=== PATIENT | male | born 1945 | race African-American/Black ===

== ENCOUNTER 2016-10-20 12:34 | Inpatient (IN) | payer OTHER ==
[~2016-10-20] VITALS: Ht 185.4 cm; Wt 97.2 kg
--- NOTE | ~2016-10-20 | CATHLAB ---
[facility] [address] [place] [address] INVASIVE PROCEDURE REPORT Name: JOSS MURRAY Room #: 210-P ADM IN M.R.#: [id number] Admission: 10/20/16 Attend Phys: Jefry Becerra, Discharge: Date of : 41 Date of Service: 10/21/16 0941 Report #: [id number] THIS REPORT FOR: //name// CC: Tremaine Pearl DO Jefry Becerra PROCEDURES: Left ventriculography, coronary angiography, and abdominal aortography. DESCRIPTION OF PROCEDURE: The patient was brought to the catheterization lab with recurrent chest pain, abdominal pain, and a troponin of 1.02. Pain free. The right groin was prepped and draped in sterile manner. Xylocaine was used for local anesthesia. Versed was given for conscious sedation. A 6-Niuean sheath in the right femoral artery. Initially, straight pigtail catheter was performed a single BLANK arteriogram. Hyperdynamic LV function, AP aortogram, no aneurysm. FL4 for left coronary system, FR4 for the right coronary system, multiple views and obliques were taken. Left main was large, free of disease. The LAD then had a mild disease proximally and then a midvessel after diagonal has a subtotaled lesion with some questionable clot. Although, MURIEL grade 3 flow through. Then, the diagonal branch approximately has a 70-80% lesion. Circ OM nondominant, but large, has at least 70% proximal OM1 and OM2 lesions. Dominant right has a high grade ostial lesion with the JR4 and a long mid vessel lesion, mid distal 80-90% with a PDA that is mildly diseased. Multiple significant areas of disease here, would require revascularization by bypass. Did give consideration to angioplasty of the LAD, but there is MURIEL grade 3 flow through this clot and he is pain free. I did utilize heparin and Integrilin boluses initially dilating this LAD. He has gotten no Plavix or Effient. Mynx closure was utilized for an ACT of 190. We will then restart a heparin drip without a blouse. Carotid Doppler and CV surgical consultation. Pain free at this point without hemodynamic compromise. HEMODYNAMICS: Aortic 154/70, LV 140/7. IMPRESSION: 1. Left main, free of disease. 2. Left anterior descending, 30% proximal mid vessel lesions, subtotal with questionable clot, but MURIEL grade 3 flow, otherwise then preserved around the apex. 3. Diagonal branch 70% proximal. 4. OM1, OM2 with 70-75% proximal lesions with relatively preserved distal vessels. 5. Dominant right ostial 80-90% and a long mid vessel 80-90% with a mildly diseased PDA. 6. Normal left ventricular size and hyperdynamic ejection fraction 60%. 7. Abdominal aorta intact, no aneurysm. Renal artery is widely patent. [facility] [address] [place] [address] INVASIVE PROCEDURE REPORT Name: JOSS MURRAY Room #: 210-P [facility] IN Bj.RStephanie#: [id number] Admission: 10/20/16 Attend Phys: Jefry Becerra, Discharge: Date of : 41 Date of Service: 10/21/16 0941 Report #: [id number] RECOMMENDATIONS: Continue aggressive risk factor modification. After Mynx closure, we will place on heparin drip, CV surgical consultation, carotid Doppler, revascularization by bypass. We will add beta khari. Pain free, hemodynamically stable on transfer back to CCU. <ELECTRONICALLY SIGNED> By: Jefry Becerra MD, FACC 10/29/16 0921 0941 2239 Jefry Becerra MD, FACC /nt
--- NOTE | ~2016-10-20 | O ---
[facility] [place] [address] OPERATIVE REPORT Name: JOSS MURRAY Room #: 213-P [facility] IN M.R.#: [id number] Admission: 10/20/16 Attend Phys: Jefry Becrera MD, Discharge: Date of : 41 Report #: [id number] THIS REPORT FOR: //name// CC: Tremaine Becerra DATE OF SERVICE: 10/22/2016 PREOPERATIVE DIAGNOSIS: Coronary artery disease. POSTOPERATIVE DIAGNOSIS: Coronary artery disease. OPERATIONS: Coronary artery bypass x 5 including left internal mammary artery to left anterior descending artery; saphenous vein to diagonal, marginal 1, and marginal 2; and saphenous vein to posterior descending artery and endoscopic harvest, left greater saphenous vein. SURGEON: Jama Lopes MD ANESTHESIA: General. INDICATIONS: The patient is a 71-year-old seen for Dr. Becerra. The patient has severe 3-vessel coronary artery disease and presents with unstable angina. Left ventricular function is satisfactory. FINDINGS AND TECHNIQUE: After general anesthesia was established, saphenous vein was harvested using an endoscopic approach by Mounika Werner and prepared for use as a conduit. Exposure was obtained through median sternotomy. Left internal mammary artery was harvested from chest wall. Pericardial well was made. Cannulation sutures were placed. Heparin was given. Aorta was cannulated. Right atrium was cannulated. Cardioplegia needle was positioned in the aortic root. Retrograde cardioplegic catheter was placed in coronary sinus. Cardiopulmonary bypass was established. The aorta was cross clamped antegrade, then retrograde. Cardioplegia were given. Ice was poured in the pericardial well. The heart was stopped. During electromechanical arrest, the distal anastomoses were performed, then end-to-side anastomosis was made between the vein and the posterior descending artery. This was a tiny vessel measuring approximately 1.2 mm. Cold cardioplegia was given. A separate segment of vein was sewn end-to-side fashion to the second marginal artery. All of the coronary arteries were diffusely calcified, but we chose reasonable spots for distal anastomoses. The second marginal measured 1.5 mm. Cold cardioplegia was given. Same segment of vein was sewn in end-to-side fashion to the second branch of the first marginal. [facility] [address] [place] [address] OPERATIVE REPORT Name: JOSS MURRAY Room #: 213-P [facility] IN M.R.#: [id number] Admission: 10/20/16 Attend Phys: Jefry Becerra MD, Discharge: Date of : 41 Report #: [id number] This was a 1.5 mm vessel. Cold cardioplegia was given. Same segment of vein was sewn in [id number] fashion to the diagonal artery. This was a 1.4 mm vessel. Cold cardioplegia was given. Left internal mammary artery was sewn in end-to-side fashion to left anterior descending artery. This was an intramyocardial vessel where it bypassed and was free of plaque in this location, but had severe calcific disease more proximally and somewhat more distally. This was a 1.7 mm vessel. Cold cardioplegia was given after the anastomosis was tested using the temperature technique. One proximal anastomosis was performed because there was severe plaque in the aorta. The proximal end of the vein graft to the right coronary was sewn to the right side of the aorta to avoid the worst plaque. When this was complete, crossclamp was removed, de-airing maneuvers were performed and an end-to-side anastomosis was made between the proximal end of the graft going to the diagonal and marginals, and this was sewn to the side of the graft going to the posterior descending. As the patient warmed, nice cardiac activity resumed, chest tubes and pacing wires were placed, a marker was placed around the proximal anastomoses. When the patient was warmed, he was weaned from cardiopulmonary bypass. Venous cannula was removed. Protamine was given, the aortic cannula was removed. Flows were measured in the bypass grafts, and this was a Y-type graft. In the limb going to the small PDA, there was a flow of 8 mL per minute. In the limb going to the left side, the flow was 35 mL per minute. A good Doppler signal was audible in the internal mammary artery. Total cross clamp time was 101 minutes. Total pump time was 141 minutes. When hemostasis was satisfactory, chest was irrigated with antibiotic solution and closed in the usual fashion. The patient was taken to the intensive care unit in good condition. All counts reported as correct. <ELECTRONICALLY SIGNED> By: Jama Lopes MD 10/26/16 1117 1806 2128 Jama Lopes MD /nt
--- NOTE | ~2016-10-20 | EKG ---
[address] [address] ELECTROCARDIOGRAM REPORT Name: JOSS MURRAY Room #: 210-P ADM IN M.R.#: [id number] Admission: 10/20/16 Attend Phys: Jefry Becerra MD, Discharge: Date of : 41 Report #: [id number] THIS REPORT FOR: //name// [facility] Test Date: 2016-10-20 Test Time: 17:03:46 Pat Name: JOSS MURRAY Department: Room: 210 Gender: M Pilates Coordinator: RANDY : 1945 Requested By: Jefry Becerra Order Number: [id number] MD: Measurements Intervals [place] Rate: 56 P: 57 MD: 175 QRS: -41 QRSD: 105 T: 20 QT: 398 QTc: 385 Interpretive Statements Sinus rhythm Left atrial enlargement Left anterior fascicular block Abnormal R-wave progression, early transition Minimal ST elevation, anterior leads No previous ECG available for comparison [email or web address] By: 1703 1703 Epiphany EpiphanyMD /EPI
--- NOTE | ~2016-10-20 | 2DMMODE ---
[address] [address] 2 D/M-MODE ECHOCARDIOGRAM Name: JOSS MURRAY Room #: 210-P ADM IN M.R.#: [id number] Admission: 10/20/16 Attend Phys: Jefry Becerra, Discharge: Date of : 41 Date of Service: 10/21/16 1315 Report #: [id number] THIS REPORT FOR: //name// APPROVED REPORT Study performed: 10/21/2016 10:48:18 EXAM: Comprehensive 2D, Doppler, and color-flow Echocardiogram Patient Location: Bedside Room #: 210 Blood Pressure: 130/66 mmHg HR: 70 bpm Other Information Study Quality: Good Indications Diabetes CAD Chest Pain Hypertension/HDD 2D Dimensions LVOT Diam: 18.00 (18-24mm) Volumes Left Atrial Volume (Systole) LA ESV Index: 14.00 mL/m2 Tricuspid Valve RAP Estimate: 5.00 mmHg Left Ventricle The left ventricle is normal size. There is normal LV segmental wall motion. Mild concentric left ventricular hypertrophy. Left ventricular systolic function is normal. The left ventricular ejection fraction is within the normal range. LVEF is 60-65%. Grade I - abnormal relaxation pattern. Right Ventricle The right ventricle is normal size. The right ventricular systolic function is normal. [address] [address] 2 D/M-MODE ECHOCARDIOGRAM Name: JOSS MURRAY Room #: 210-P ADM IN M.R.#: [id number] Admission: 10/20/16 Attend Phys: Jefry Becerra, Discharge: Date of : 41 Date of Service: 10/21/16 1315 Report #: [id number] [place] The left atrium size is normal. The right atrium size is normal. Aortic Valve The aortic valve is trileaflet, mildly calcified Mild aortic regurgitation. There is no aortic valvular stenosis. Mitral Valve The mitral valve is normal in structure. There is no mitral valve regurgitation noted. No evidence of mitral valve stenosis. Tricuspid Valve The tricuspid valve is normal in structure. Trace tricuspid regurgitation. Pulmonic Valve The pulmonary valve is normal in structure. There is no pulmonic valvular regurgitation. Great Vessels The aortic root is normal in size. IVC is normal in size and collapses with >50% inspiration Pericardium There is no pericardial effusion. <Conclusion> Left ventricular systolic function is normal. Mild concentric left ventricular hypertrophy. There is normal LV segmental wall motion. LVEF 60-65%. Grade I diastolic dysfunction The aortic valve is trileaflet, mildly calcified Mild aortic regurgitation, no stenosis. The mitral valve is normal in structure, no mitral valve regurgitation noted. Pulmonary artery pressure could not be reliably ascertained. There is no pericardial effusion. <ELECTRONICALLY SIGNED> By: Jayy Reyes MD, FACC 04/1314 14 14 Jayy Reyes MD, FAC /INF
--- NOTE | ~2016-10-20 | D ---
[facility] [address] [place] [address] DISCHARGE SUMMARY Name: JOSS MURRAY Room #: 210-P [facility] IN M.R.#: [id number] Admission: 10/20/16 Attend Phys: Jefry Becerra MD, Discharge: Date of : 41 Report #: [id number] THIS REPORT FOR: //name// CC: Tremaine Pearl [facility] COURSE: The patient is a 71-year-old male who was admitted with a strange presentation of epigastric and chest pain. Subsequently, he had a slight bump in the troponin and was taken to the catheterization lab, which revealed severe 3-vessel disease. Subsequently, underwent bypass surgery by Dr. Jama Lopes. The patient had preserved LV function, and in fact, slightly hypodynamic. He proceeded nicely. He had a fairly stable postop course. He did have a small pneumothorax, which has nearly resolved. He had a slight ileus which also has resolved. He will be discharged to home. They are actually in the transition moving from [place], [place] here to [place]. We will arrange followup with Dr. Norwood and me within 2 weeks. He may return to [place] for some period of time. His chemistry: Sodium 135, creatinine 1.0 and potassium 3.5. Liver function tests were normal. He did have mildly elevated lipids. LDL was 102. H and H were 10.7 and 31.3 at discharge. His bypass was 5 vessels a STEWART to an LAD, SVG to the diagonal and OM1, OM2, so it was a triple sequential an SVG to a PDA. MEDICATIONS: His home medications will include baby aspirin, amiodarone 200 b.i.d. to wean to once a day for 2 weeks and then off within a month, atorvastatin 40, insulin, melatonin, Pepcid he can take p.r.n., metoprolol tartrate 25 b.i.d., hydrochlorothiazide 25 and metformin 500 b.i.d. DISCHARGE INSTRUCTIONS: His instructions are noted above. No significant lifting with the upper body as per surgery instructions. He has followup with Dr. Norwood in 2 weeks and myself in 2 weeks and then we will arrange some formal cardiac rehabilitation. He is supposed to ambulate, walk 10 minutes twice a day. He will call with any issues. DISCHARGE DIAGNOSES: 1. Coronary artery disease with successful bypass 5-vessel stated above. 2. Hypertension. 3. Hypercholesterolemia. 4. Diabetes. 5. Postoperative Ileus and small apical pneumothorax, both resolved. By: 0834 1324 Jefry Becerra MD, FACC /nt
--- NOTE | ~2016-10-20 | EKG ---
[address] [address] ELECTROCARDIOGRAM REPORT Name: JOSS MURRAY Room #: 210-P ADM IN M.R.#: [id number] Admission: 10/20/16 Attend Phys: Jefry Becerra MD, Discharge: Date of : 41 Report #: [id number] THIS REPORT FOR: //name// [facility] Test Date: 2016-10-21 Test Time: 06:45:21 Pat Name: JOSS MURRAY Department: Room: 210 P Gender: M Paper Machine Back Tender: willy : 1945 Requested By: Jefry Becerra Order Number: [id number] MD: Jayy Reyes Measurements Intervals [place] Rate: 58 P: 46 [place]: 165 QRS: -52 QRSD: 101 T: 26 QT: 417 QTc: 410 Interpretive Statements Sinus rhythm Probable left atrial enlargement Left anterior fascicular block No previous ECG available for comparison Electronically Signed On 10-21-2016 9:28:37 CDT by Jayy Reyes [email or web address] <ELECTRONICALLY SIGNED> By: Jayy Reyes MD, [facility] 10/21/16 0928 D: [id number] 4 Jayy Reyes MD, FACC /EPI
--- NOTE | ~2016-10-20 | EKG ---
[address] [place] [address] ELECTROCARDIOGRAM REPORT Name: JOSS MURRAY Room #: 210-P ADM IN M.R.#: [id number] Admission: 10/20/16 Attend Phys: Jefry Becerra MD, Discharge: Date of : 41 Report #: [id number] THIS REPORT FOR: //name// [facility] ED Test Date: 2016-10-20 Test Time: 12:37:49 Pat Name: JOSS MURRAY Department: Room: 210 Gender: M Dental Coordinator: Corwin MERCADO : 1945 Requested By: Willy Perkins Order Number: [id number] MD: Jayy Reyes Measurements Intervals [place] Rate: 57 P: 39 [place]: 162 QRS: -42 QRSD: 101 T: 11 QT: 401 QTc: 391 Interpretive Statements Sinus rhythm Left anterior fascicular block Abnormal R-wave progression, early transition No previous ECG available for comparison Electronically Signed On 10-21-2016 9:21:13 CDT by Jayy Reyes [email or web address] <ELECTRONICALLY SIGNED> By: Jayy Reyes MD, [facility] 10/21/16 0921 1237 1237 Jayy Reyes MD, FAC /EPI
--- NOTE | ~2016-10-20 | HC ---
[facility] [place] [address] CONSULTATION Name: JOSS MURRAY Room #: 210-P [facility] IN M.R.#: [id number] Admission: 10/20/16 Attend Phys: Jefry Becerra MD, Discharge: Date of : 41 Report #: [id number] THIS REPORT FOR: //name// CC: Tremaine Becerra DATE OF SERVICE: 10/21/2016 We were asked by Dr. Becerra to see the patient. The patient is a 71-year-old with coronary artery disease. The patient apparently moved here recently from [place], [place]. The patient has been having recurrent epigastric discomfort and in [place], he was diagnosed with H. pylori. The patient developed more pain over the weekend and had a severe episode of unrelenting midsternal pain while on the treadmill. This was initially left side, substernal and then the breastbone radiating to the epigastrium, lasted for approximately an hour and this brought the patient to the Emergency Department. The patient had some nonspecific EKG changes and was associated with an elevated troponin. We note that cardiac catheterization was done today. This shows severe 3-vessel coronary artery disease including high grade mid LAD and right coronary lesions. Left ventricular function is satisfactory. There are also lesions in the circumflex, marginals and in a nicely sized diagonal as well. PAST MEDICAL HISTORY: Significant for hypertension, diabetes mellitus, hypercholesterolemia, H. pylori treated in August. PAST SURGICAL HISTORY: Left shoulder surgery 2013, left knee surgery. SOCIAL HISTORY: . 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 Has not smoked in 50 years. FAMILY HISTORY: Positive for coronary artery disease. One sister had a sudden and brother has had several infarcts. REVIEW OF SYSTEMS: CONSTITUTIONAL: Weight loss over the last year, related to decreased appetite. No fever or chills. RESPIRATORY: No shortness of breath, no sputum production, no hemoptysis. CARDIAC: As mentioned, the patient has had epigastric pain that he has attributed to GI system until the most recent episode, which was exercise related, no palpitations. GASTROINTESTINAL: As mentioned, epigastric discomfort associated with food intake. No nausea, vomiting, diarrhea, just loss of appetite. GENITOURINARY: No urgency, frequency, dysuria. MUSCULOSKELETAL: Scattered arthritides which led to joint replacement surgery, left shoulder and left knee surgery. [facility] [address] [place] [address] CONSULTATION Name: JOSS UMRRAY Room #: 210-P [facility] IN M.R.#: [id number] Admission: 10/20/16 Attend Phys: Jefry Becerra MD, Discharge: Date of : 41 Report #: [id number] NEUROLOGIC: No motor or sensory dysfunction. PSYCHIATRIC: No hallucination or depression. SKIN: No rash or infection. HEMATOLOGIC AND LYMPHATIC: No anemia, no swelling. HEENT: No visual changes. No headaches. No nasal drainage. No sore throat, no ear problems, is hard of hearing. PHYSICAL EXAMINATION: GENERAL: The patient is a pleasant fellow. He is oriented and appropriate. VITAL SIGNS: Temperature 36.8, heart rate 70, respiratory rate 16, blood pressure 130/66, pulse ox 91 on room air. HEENT: No scleral icterus, no arcus. Pupils equal, round, gaze conjugate. Normocephalic. No oral or nasal injection. NECK: No lymphadenopathy, no bruit. LUNGS: Clear to auscultation. No adventitious sounds. HEART: Rhythm regular, no murmurs. ABDOMEN: Soft, no mass, no tenderness. SKIN: No rash or infection. EXTREMITIES: No clubbing, cyanosis or edema. I do not feel strong distal pulses, but popliteal pulses are 2+ bilaterally. NEUROLOGIC: Oriented and appropriate. No motor or sensory dysfunction. PSYCHIATRIC: Mood is neither artificially elevated or depressed. The patient is very calm, demeanor and he shows insight into problems. I have reviewed the risks and details of coronary artery bypass surgery. This is appropriate for 2 reasons in this patient. The fact that the patient has multivessel disease and has diabetes mellitus and the nature and number and location of the lesions themselves. I have discussed the risks and details of bypass surgery, the options and alternatives, risks include, but are not limited to bleeding, infection, anesthesia risks, heart and lung problems, stroke, and . The patient understands all of this and he wishes to proceed. We will try to arrange surgery for tomorrow. <ELECTRONICALLY SIGNED> By: Jama Lopes MD 10/21/16 1413 1130 1154 Jaam Lopes MD /nt
--- NOTE | ~2016-10-20 | EKG ---
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 Machine Operator: CHINEDU : 1945 Requested By: Willy Perkins Order Number: [id number] MD: Jayy Reyes Measurements Intervals [place] Rate: 50 P: 40 [place]: 165 QRS: -41 QRSD: 100 T: 10 QT: 417 QTc: 381 Interpretive Statements Sinus rhythm Left anterior fascicular block Abnormal R-wave progression, early transition No previous ECG available for comparison Electronically Signed On 10-21-2016 9:21:45 CDT by Jayy Reyes [email or web address] <ELECTRONICALLY SIGNED> By: Jayy Reyes MD, [facility] 10/21/16 0921 16 16 Jayy Reyes MD, FAC /EPI
--- NOTE | ~2016-10-20 | EKG ---
[address] [place] [address] ELECTROCARDIOGRAM REPORT Name: JOSS MURRAY Room #: 210-P ADM IN M.R.#: [id number] Admission: 10/20/16 Attend Phys: Jefry Becerra MD, Discharge: Date of : 41 Report #: [id number] THIS REPORT FOR: //name// [facility] Test Date: 2016-10-26 Test Time: 07:25:45 Pat Name: JOSS MURRAY Department: Room: 210 Gender: M Chip Drier: jessica : 1945 Requested By: Jama Lopes Order Number: [id number] MD: Jayy Reyes Measurements Intervals [place] Rate: 82 P: 0 [place]: 135 QRS: -74 QRSD: 147 T: 17 QT: 426 QTc: 498 Interpretive Statements Sinus rhythm Right bundle branch block Left anterior hemiblock Minimal, diffuse ST elevation, consider pericarditis Compared to ECG 10/23/2016 06:37:17 no significant change was found Electronically Signed On 10-27-2016 12:46:10 CDT by Jayy Reyes [email or web address] <ELECTRONICALLY SIGNED> By: Jayy Reyes MD, [facility] 10/27/16 1246 0725 0725 Jayy Reyes MD, [facility] /EPI
--- NOTE | ~2016-10-20 | EKG ---
[address] [place] [address] ELECTROCARDIOGRAM REPORT Name: JOSS MURRAY Room #: 210-P ADM IN M.R.#: [id number] Admission: 10/20/16 Attend Phys: Jefry Becerra MD, Discharge: Date of : 41 Report #: [id number] THIS REPORT FOR: //name// [facility] Test Date: 2016-10-20 Test Time: 17:03:46 Pat Name: JOSS MURRAY Department: Room: 210 P Gender: M Loan Broker: RANDY : 1945 Requested By: Jefry Becerra Order Number: [id number] MD: Jayy Reyes Measurements Intervals [place] Rate: 56 P: 57 [place]: 175 QRS: -41 QRSD: 105 T: 20 QT: 398 QTc: 385 Interpretive Statements Sinus rhythm Left atrial enlargement Left anterior fascicular block Abnormal R-wave progression, early transition No previous ECG available for comparison Electronically Signed On 10-21-2016 9:23:22 CDT by Jayy Reyes [email or web address] <ELECTRONICALLY SIGNED> By: Jayy Reyes MD, [facility] 10/21/16 0923 02 02 Jayy Reyes MD, [facility] /EPI
--- NOTE | ~2016-10-20 | EKG ---
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 : 1945 Requested By: Jama Lopes Order Number: [id number] MD: Jayy Reyes Measurements Intervals [place] Rate: 77 P: 6 CO: 136 QRS: -65 QRSD: 138 T: 14 QT: 406 QTc: 460 Interpretive Statements Sinus rhythm Right bundle branch block Inferior infarct, old Minimal diffuse ST elevation, consider pericarditis Baseline wander in lead(s) V5,V6 Compared to ECG 10/21/2016 06:45:21 repolarization abnormality is slightly more prominent Electronically Signed On 10-24-2016 8:10:25 CDT by Jayy Reyes [email or web address] <ELECTRONICALLY SIGNED> By: Jayy Reyes MD, [facility] 10/24/16 0810 0637 0637 Jayy Reyes MD, [facility] /EPI
--- NOTE | ~2016-10-20 | H ---
[facility] [place] [address] HISTORY AND PHYSICAL Name: JOSS MURRAY Room #: 210-P ADM IN M.R.#: [id number] Admission: 10/20/16 Attend Phys: Jefry Becerra MD, Discharge: Date of : 41 Report #: [id number] THIS REPORT FOR: //name// CC: Tremaine Pearl DO Jefry Becerra DATE OF SERVICE: 10/20/2016 HISTORY OF PRESENT ILLNESS: The patient is a 71-year-old -[place] male. He recently move here from [place], [place] ____ moving here. Saw Dr. Pearl for trying to arrange some primary care for some recurrent chest pain, epigastric discomfort initially left side, substernal, breast bone radiating down to the epigastrium. It seems to be associated with food but had an episode this morning while on the treadmill although this discomfort had initiated before the treadmill after he had a breakfast sausage. This lasted approximately an hour. The EKG has some nonspecific changes on it. Some early repol or some ST abnormalities in the anterior leads and some subtle and inferior T-wave inversions. Three times I repeated this EKG. It looks to be unchanged. He is pain free since he came here. Initial troponin was 0.08, we are repeating one. He does not have cardiac history, but does have significant risk factors, hypertension, diabetes and hypercholesterolemia. He has not recently started Protonix, although I think Dr. Pearl may have started this. He had been off it for 6 months, taking some Tagamet he states, glimepiride 2 mg, Lipitor 40, metformin 500 b.i.d., amlodipine 10, metoprolol 50, Actos, potassium 10, hydrochlorothiazide 25. He has had no syncope or presyncope. He is active. 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 He is accompanied by his brother who lives here and his . PAST MEDICAL HISTORY: Positive for hypertension, diabetes, hypercholesterolemia, H. pylori treated in August for this, knee surgery, left shoulder replacement, carpal tunnel, DJD, reflux, longstanding. REVIEW OF SYSTEMS: Essentially negative except for some increasing constipation issues and has been chewing a lot of Tums lately, which may be playing a role he states. SOCIAL HISTORY: He is . He has raised 6 children together moving here from [place]. Social alcohol, no tobacco use. No drug use. FAMILY HISTORY: Brother and a sister, both have had coronary events in their late 50s or early 60s. PHYSICAL EXAMINATION: GENERAL: He is in no distress. VITAL SIGNS: Pulse is 50s and regular. Blood pressure 140/74. [facility] [address] [place] [address] HISTORY AND PHYSICAL Name: JOSS MURRAY Room #: 210-P [facility] IN M.R.#: [id number] Admission: 10/20/16 Attend Phys: Jefry Becerra MD, Discharge: Date of : 41 Report #: [id number] HEENT: Eyes: No xanthelasmas. Pharynx is clear. NECK: Shows preserved upstrokes without JVD or bruits. LUNGS: Clear. CARDIOVASCULAR: Regular rate and rhythm, S1, S2. Somewhat distant. ABDOMEN: Protuberant, is just diffusely tender but no rebound, slightly worse in the epigastric area, positive bowel sounds. EXTREMITIES: Reveal trace of edema, nonpitting. NEUROLOGIC: Nonfocal. SKIN: Warm and dry without xanthoma or ulcer. MUSCULOSKELETAL: Some valgus deformity of the knees, the left shoulder scar from a shoulder replacement. SKIN: Warm and dry without xanthoma or ulcer. NEUROLOGIC: Intact. LABORATORY DATA: Creatinine 1.2, potassium 4.2, glucose 260, troponin 0.81, awaiting repeat, H and H is 17 and 48. White count 4.6. ASSESSMENT: 1. Chest pain with an equivocal troponin elevation, 0.81. 2. Hypertension. 3. Diabetes. 4. Hypercholesterolemia. 5. Obesity. 6. Significant reflux history. 7. Degenerative joint disease. RECOMMENDATIONS AND PLAN: I have continued with the metoprolol, amlodipine, Lipitor, metformin. We will hold metformin by the chance and we would need to proceed to the catheterization lab, although certainly not emergently here, no EKG changes, hydrochlorothiazide, Protonix. We will obtain an enzyme now in the a.m. EKG repeated now has already completed, no change and in a.m. He actually has been on a treadmill, so if we do not have any further elevation of enzymes, I would opt for a stress echo. Would hold the a.m. metoprolol and proceed with the stress test in the a.m. barring there is no increased troponin. If there is increased troponin, then one would give serious consideration to cardiac catheterization here with multiple risk factors. In addition, may need GI consult or EGD based on this, also abdominal ultrasound would be indicated and potential for a gallbladder issue here. This had been discussed with the patient, he is pain free. If he if comfortable, I will feed him bland diet tonight. We will keep him n.p.o. after midnight and follow. <ELECTRONICALLY SIGNED> By: Jefry Becerra MD, [facility] 10/21/16 0815 1720 1828 Jefry Becerra MD, FACC /nt
--- NOTE | ~2016-10-20 | EKG ---
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 : 1945 Requested By: Jama Lopes Order Number: [id number] MD: Jayy Reyes Measurements Intervals [place] Rate: 85 P: 13 [place]: 190 QRS: -86 QRSD: 137 T: 39 QT: 408 QTc: 486 Interpretive Statements Sinus rhythm RBBB and LAFB Compared to ECG 10/21/2016 06:45:21 Right bundle-branch block now present Electronically Signed On 10-23-2016 8:33:20 CDT by Jayy Reyes [email or web address] <ELECTRONICALLY SIGNED> By: Jayy Reyes MD, [facility] 10/23/16 0833 1604 1604 Jyay Reyes MD, [facility] /EPI
[2016-10-20 12:35] VITALS: BP 173/75
[2016-10-20 13:01] LABS: ABSOLUTE NEUTROPHILS 2.8 thou/uL (1.4-8.2); BASOPHILS 1.6 % (0.0-2.0); HEMATOCRIT 48.8 % (42.0-52.0); LYMPHOCYTES 27.8 % (24.0-44.0); MCH 29.1 pg (26.0-34.0); MCHC 34.9 g/dL (28.0-37.0); MCV 83.3 fL (80.0-100.0); MONOCYTES 9.1 % (1.0-8.0); PLATELET COUNT 232 thou/uL (150-400); POLYS 60.5 % (36.0-66.0); RBC 5.86 mil/uL (4.50-6.00); RDW 13.2 % (10.5-14.5); WBC 4.6 thou/uL (4.0-11.0)
[2016-10-20 13:02] LABS: MANUAL DIFF NO
[2016-10-20 13:06] LABS: CALCIUM 9.6 mg/dL (8.5-10.1); CREATININE 1.2 mg/dL (0.7-1.3); POTASSIUM 4.2 mmol/L (3.5-5.1)
[2016-10-20 13:13] LABS: ALBUMIN 3.8 g/dL (3.4-5.0); TOTAL BILIRUBIN 0.7 mg/dL (<0.1-1.0); TOTAL PROTEIN 7.9 g/dL (6.4-8.2)
[2016-10-20 13:15] LABS: TROPONIN-I 0.81 ng/mL (<0.04-0.07)
[2016-10-20] MEDS ORDERED: HYDROCHLOROTHIA25 M2 PO (13:21)
[2016-10-20] MEDS ORDERED: PANTOPRAZOLE SO40 M1 PO (13:21)
[2016-10-20] MEDS ORDERED: KLOR-CON M1010 MEQ PO (13:22)
[2016-10-20] MEDS ORDERED: AMARYL2 MG PO (13:22)
[2016-10-20] MEDS ORDERED: ATORVASTATIN CA40 MG PO (13:22)
[2016-10-20] MEDS ORDERED: AMLODIPINE BESY10 MG PO (13:23)
[2016-10-20] MEDS ORDERED: GLUCOPHAGE XR500 MG PO (13:23)
[2016-10-20] MEDS ORDERED: METOPROLOL SUCC50 MG PO (13:23)
[2016-10-20] MEDS ORDERED: ACTOS 30 MG TAB30 M2 PO (13:24)
[2016-10-20] MEDS ORDERED: [UNRECOGNIZED DRUG - OTHER] PO (13:25)
[2016-10-20] MEDS ORDERED: [UNRECOGNIZED DRUG - SUPPLY] PO (13:26)
[2016-10-20 19:37] VITALS: BP 139/71
[2016-10-20 23:35] VITALS: BP 134/67
[2016-10-21] VITALS (11 sets, daily range): BP systolic 116–167; BP diastolic 56–93
[2016-10-21 06:57] LABS: CHOLESTEROL 168 mg/dL (<200); HDL CHOLESTEROL 53 mg/dL (>40); LDL CHOLESTEROL 102 mg/dL (<100); TC:HDL 3.2 Ratio (Not establshd); TRIGLYCERIDE 69 mg/dL (<150); VLDL 14 mg/dL (<40)
[2016-10-21 06:59] LABS: TROPONIN-I 1.02 ng/mL (<0.04-0.07)
[2016-10-21 12:04] LABS: MCH 29.4 pg (26.0-34.0); MCHC 34.7 g/dL (28.0-37.0); MCV 84.6 fL (80.0-100.0); RBC 5.43 mil/uL (4.50-6.00); RDW 12.8 % (10.5-14.5)
[2016-10-21 12:06] LABS: CALCIUM 9.1 mg/dL (8.5-10.1); CREATININE 1.2 mg/dL (0.7-1.3)
[2016-10-21 12:10] LABS: ALBUMIN 3.3 g/dL (3.4-5.0); APTT 33.8 Seconds (24.5-32.8); INR 1.1; PROTIME 11.8 Seconds (9.3-11.4); TOTAL BILIRUBIN 0.9 mg/dL (<0.1-1.0); TOTAL PROTEIN 6.9 g/dL (6.4-8.2)
[2016-10-21 12:52] LABS: URINE BILIRUBIN NEGATIVE (Negative); URINE BLOOD NEGATIVE (Negative); URINE COLOR YELLOW; URINE GLUCOSE-RANDOM* 2+ (Negative); URINE KETONES NEGATIVE (Negative); URINE LEUKOCYTES-REFLEX NEGATIVE (Negative); URINE PROTEIN (DIPSTICK) NEGATIVE (Negative); URINE SPECIFIC GRAVITY <= 1.005 (1.003-1.035)
[2016-10-21 21:12] LABS: GLYCOHEMOGLOBIN (HGB A1C) 8.2 % (4.8-5.6)
[2016-10-22] VITALS (12 sets, daily range): BP systolic 104–157; BP diastolic 57–82
[2016-10-22 04:23] LABS: CALCIUM 9.2 mg/dL (8.5-10.1); CREATININE 1.1 mg/dL (0.7-1.3); POTASSIUM 3.6 mmol/L (3.5-5.1)
[2016-10-22 04:42] LABS: HEMATOCRIT 44.4 % (42.0-52.0); HEMOGLOBIN 15.6 gm/dL (14.0-18.0); MCH 29.5 pg (26.0-34.0); MCHC 35.1 g/dL (28.0-37.0); RBC 5.28 mil/uL (4.50-6.00); RDW 12.8 % (10.5-14.5); WBC 5.1 thou/uL (4.0-11.0)
[2016-10-22 15:16] LABS: POC BE -2 mmol/L (-2.0 to +3.0); POC CA IONIZED 5.4 mg/dL (4.5-5.3); POC FiO2 100 %; POC GLUCOSE 133 mg/dL (70-99); POC HCO3 23.1 mmol/L (22.0-26.0); POC HEMOGLOBIN 11.2 g/dL (14.0-18.0); POC POTASSIUM 3.6 mmol/L (3.5-5.1); POC SODIUM 138 mmol/L (136-145); POC pCO2 39.2 mmHg (35.0-45.0); POC pH 7.378 (7.360-7.450)
[2016-10-22 15:16] LABS: POC BE 3 mmol/L (-2.0 to +3.0); POC CA IONIZED 6.2 mg/dL (4.5-5.3); POC FiO2 100 %; POC GLUCOSE 138 mg/dL (70-99); POC HCO3 27.6 mmol/L (22.0-26.0); POC HEMOGLOBIN 10.2 g/dL (14.0-18.0); POC POTASSIUM 3.4 mmol/L (3.5-5.1); POC SODIUM 135 mmol/L (136-145); POC pCO2 43.2 mmHg (35.0-45.0); POC pH 7.414 (7.360-7.450)
[2016-10-22 15:16] LABS: POC BE -2 mmol/L (-2.0 to +3.0); POC CA IONIZED 4.8 mg/dL (4.5-5.3); POC FiO2 100 %; POC GLUCOSE 152 mg/dL (70-99); POC HCO3 24.2 mmol/L (22.0-26.0); POC HEMOGLOBIN 11.6 g/dL (14.0-18.0); POC POTASSIUM 3.8 mmol/L (3.5-5.1); POC SODIUM 132 mmol/L (136-145); POC pCO2 46.5 mmHg (35.0-45.0); POC pH 7.324 (7.360-7.450)
[2016-10-22 15:16] LABS: POC BE 3 mmol/L (-2.0 to +3.0); POC CA IONIZED 5.1 mg/dL (4.5-5.3); POC FiO2 100 %; POC GLUCOSE 219 mg/dL (70-99); POC HCO3 27.6 mmol/L (22.0-26.0); POC HEMOGLOBIN 14.6 g/dL (14.0-18.0); POC POTASSIUM 4.4 mmol/L (3.5-5.1); POC SODIUM 135 mmol/L (136-145); POC pCO2 42.5 mmHg (35.0-45.0); POC pH 7.421 (7.360-7.450)
[2016-10-22 15:16] LABS: POC BE 2 mmol/L (-2.0 to +3.0); POC CA IONIZED 4.7 mg/dL (4.5-5.3); POC FiO2 100 %; POC GLUCOSE 156 mg/dL (70-99); POC HCO3 27.3 mmol/L (22.0-26.0); POC HEMOGLOBIN 11.2 g/dL (14.0-18.0); POC POTASSIUM 3.8 mmol/L (3.5-5.1); POC SODIUM 131 mmol/L (136-145); POC pCO2 49.4 mmHg (35.0-45.0); POC pH 7.351 (7.360-7.450)
[2016-10-22 15:16] LABS: POC BE 1 mmol/L (-2.0 to +3.0); POC CA IONIZED 5.1 mg/dL (4.5-5.3); POC FiO2 100 %; POC GLUCOSE 179 mg/dL (70-99); POC HCO3 25.5 mmol/L (22.0-26.0); POC HEMOGLOBIN 14.3 g/dL (14.0-18.0); POC POTASSIUM 3.8 mmol/L (3.5-5.1); POC SODIUM 137 mmol/L (136-145); POC pCO2 40.3 mmHg (35.0-45.0)
[2016-10-22 15:16] LABS: POC BE -4 mmol/L (-2.0 to +3.0); POC CA IONIZED 5.1 mg/dL (4.5-5.3); POC FiO2 100 %; POC GLUCOSE 114 mg/dL (70-99); POC HCO3 21.6 mmol/L (22.0-26.0); POC HEMOGLOBIN 12.2 g/dL (14.0-18.0); POC POTASSIUM 3.6 mmol/L (3.5-5.1); POC SODIUM 141 mmol/L (136-145); POC pCO2 37.4 mmHg (35.0-45.0); POC pH 7.369 (7.360-7.450)
[2016-10-22 15:16] LABS: POC BE 2 mmol/L (-2.0 to +3.0); POC CA IONIZED 4.7 mg/dL (4.5-5.3); POC FiO2 100 %; POC GLUCOSE 143 mg/dL (70-99); POC HCO3 26.2 mmol/L (22.0-26.0); POC HEMOGLOBIN 10.9 g/dL (14.0-18.0); POC POTASSIUM 3.9 mmol/L (3.5-5.1); POC SODIUM 133 mmol/L (136-145); POC pCO2 40.2 mmHg (35.0-45.0); POC pH 7.422 (7.360-7.450)
[2016-10-22 15:16] LABS: POC BE 3 mmol/L (-2.0 to +3.0); POC CA IONIZED 4.7 mg/dL (4.5-5.3); POC FiO2 100 %; POC GLUCOSE 154 mg/dL (70-99); POC HCO3 27.9 mmol/L (22.0-26.0); POC HEMOGLOBIN 11.2 g/dL (14.0-18.0); POC POTASSIUM 3.6 mmol/L (3.5-5.1); POC SODIUM 132 mmol/L (136-145); POC pCO2 43.4 mmHg (35.0-45.0); POC pH 7.416 (7.360-7.450)
[2016-10-22 15:42] LABS: HEMATOCRIT 39.3 % (42.0-52.0); MCH 28.6 pg (26.0-34.0); MCHC 34.1 g/dL (28.0-37.0); MCV 83.9 fL (80.0-100.0); RBC 4.68 mil/uL (4.50-6.00); RDW 13.1 % (10.5-14.5); WBC 12.8 thou/uL (4.0-11.0)
[2016-10-22 15:43] LABS: HEMOGLOBIN 13.4 gm/dL (14.0-18.0)
[2016-10-22 15:54] LABS: ABG SAMPLE TYPE ARTERIAL; BE(vivo) -4.1 mmol/L (-2 to +3); HCO3 22.4 mmol/L (22.0-26.0); LACTATE 1.31 mmol/L (0.5-2.0); O2Hb 94.3 % (92.0-98.0); PCO2 46.4 mmHg (35.0-45.0); PO2 90.3 mmHg (80.0-100.0); STICK SITE LINE; TIDAL VOLUME 650 ml; pH 7.301 (7.360-7.450); sO2 96.1 % (92.0-98.0); tCO2 23.8 mmol/L (24.0-30.0)
[2016-10-22 15:56] LABS: CALCIUM 8.7 mg/dL (8.5-10.1); CREATININE 0.9 mg/dL (0.7-1.3); POTASSIUM 3.8 mmol/L (3.5-5.1)
[2016-10-22 17:16] LABS: ABG SAMPLE TYPE ARTERIAL; BE(vivo) -7.4 mmol/L (-2 to +3); HCO3 17.8 mmol/L (22.0-26.0); LACTATE 2.39 mmol/L (0.5-2.0); O2(CT) 15.9 mL/dL (15.0-23.0); O2Hb 93.8 % (92.0-98.0); PCO2 34.8 mmHg (35.0-45.0); PO2 85.9 mmHg (80.0-100.0); STICK SITE LINE; TIDAL VOLUME 650 ml; pH 7.326 (7.360-7.450); tCO2 18.8 mmol/L (24.0-30.0)
[2016-10-22 20:13] LABS: ABG SAMPLE TYPE ARTERIAL; BE(vivo) -5.3 mmol/L (-2 to +3); HCO3 19.7 mmol/L (22.0-26.0); LACTATE 1.84 mmol/L (0.5-2.0); O2(CT) 16.4 mL/dL (15.0-23.0); O2Hb 94.1 % (92.0-98.0); PCO2 36.5 mmHg (35.0-45.0); STICK SITE LINE; pH 7.349 (7.360-7.450); sO2 95.9 % (92.0-98.0); tCO2 20.8 mmol/L (24.0-30.0)
[2016-10-22 20:14] LABS: ABG COMMENT CPAP X 20MIN; Pressure Support 8 cm H20
[2016-10-22 21:09] LABS: ABG COMMENT 30MIN POST EXTUB.; ABG SAMPLE TYPE ARTERIAL; BE(vivo) -3.8 mmol/L (-2 to +3); Face Shield 50 %; LACTATE 2.29 mmol/L (0.5-2.0); O2(CT) 16.1 mL/dL (15.0-23.0); O2Hb 94.4 % (92.0-98.0); PCO2 37.3 mmHg (35.0-45.0); PO2 82.9 mmHg (80.0-100.0); STICK SITE LINE; pH 7.368 (7.360-7.450); tCO2 22.1 mmol/L (24.0-30.0)
[2016-10-22 23:36] LABS: HEMATOCRIT 33.5 % (42.0-52.0); HEMOGLOBIN 11.5 gm/dL (14.0-18.0); MCHC 34.2 g/dL (28.0-37.0); MCV 84.8 fL (80.0-100.0); RBC 3.96 mil/uL (4.50-6.00); RDW 12.7 % (10.5-14.5); WBC 10.6 thou/uL (4.0-11.0)
[2016-10-22 23:40] LABS: CALCIUM 8.7 mg/dL (8.5-10.1); CREATININE 1.3 mg/dL (0.7-1.3)
[2016-10-22 23:41] LABS: POTASSIUM 4.8 mmol/L (3.5-5.1)
[2016-10-23] VITALS (21 sets, daily range): BP systolic 95–136; BP diastolic 58–105
[2016-10-23 05:33] LABS: HEMATOCRIT 32.4 % (42.0-52.0); HEMOGLOBIN 11.2 gm/dL (14.0-18.0); MCH 29.2 pg (26.0-34.0); MCHC 34.5 g/dL (28.0-37.0); MCV 84.8 fL (80.0-100.0); RBC 3.82 mil/uL (4.50-6.00); RDW 13.2 % (10.5-14.5); WBC 8.2 thou/uL (4.0-11.0)
[2016-10-23 05:38] LABS: CALCIUM 9.2 mg/dL (8.5-10.1); CREATININE 1.1 mg/dL (0.7-1.3)
[2016-10-24] VITALS (14 sets, daily range): BP systolic 115–155; BP diastolic 57–76
[2016-10-24 04:23] LABS: POTASSIUM 4.4 mmol/L (3.5-5.1)
[2016-10-24 04:33] LABS: HEMATOCRIT 30.1 % (42.0-52.0); HEMOGLOBIN 10.4 gm/dL (14.0-18.0); MCH 29.2 pg (26.0-34.0); MCHC 34.6 g/dL (28.0-37.0); MCV 84.6 fL (80.0-100.0); RBC 3.56 mil/uL (4.50-6.00); RDW 13.2 % (10.5-14.5); WBC 8.6 thou/uL (4.0-11.0)
[2016-10-25 03:38] VITALS: BP 126/67
[2016-10-25 03:59] LABS: CALCIUM 9.3 mg/dL (8.5-10.1); CREATININE 1.2 mg/dL (0.7-1.3); POTASSIUM 3.9 mmol/L (3.5-5.1)
[2016-10-25 04:19] LABS: HEMATOCRIT 28.4 % (42.0-52.0); HEMOGLOBIN 9.9 gm/dL (14.0-18.0); MCH 29.5 pg (26.0-34.0); MCHC 34.8 g/dL (28.0-37.0); MCV 84.7 fL (80.0-100.0); RBC 3.36 mil/uL (4.50-6.00); RDW 12.9 % (10.5-14.5); WBC 7.4 thou/uL (4.0-11.0)
[2016-10-25 07:25] VITALS: BP 140/76
[2016-10-25 11:15] VITALS: BP 133/75
[2016-10-25 19:55] VITALS: BP 155/78
[2016-10-26 03:18] LABS: HEMATOCRIT 31.3 % (42.0-52.0); HEMOGLOBIN 10.7 gm/dL (14.0-18.0); MCHC 34.3 g/dL (28.0-37.0); MCV 84.7 fL (80.0-100.0); RBC 3.7 mil/uL (4.50-6.00); RDW 13.1 % (10.5-14.5); WBC 6.4 thou/uL (4.0-11.0)
[2016-10-26 03:30] LABS: CALCIUM 9.4 mg/dL (8.5-10.1); POTASSIUM 4.1 mmol/L (3.5-5.1)
[2016-10-26 05:17] VITALS: BP 137/72
[2016-10-26 07:30] VITALS: BP 124/68
[2016-10-26 11:35] VITALS: BP 120/63
[2016-10-26 15:25] VITALS: BP 160/82
[2016-10-26 19:28] VITALS: BP 138/64
[2016-10-27 03:43] LABS: CALCIUM 9.6 mg/dL (8.5-10.1); CREATININE 1.1 mg/dL (0.7-1.3); POTASSIUM 3.8 mmol/L (3.5-5.1)
[2016-10-27 03:57] VITALS: BP 156/97
[2016-10-27 07:15] VITALS: BP 145/73
[2016-10-27 11:40] VITALS: BP 125/65
[2016-10-27 16:55] VITALS: BP 126/65
[2016-10-27 19:18] VITALS: BP 117/64
[2016-10-28 02:31] LABS: POTASSIUM 3.5 mmol/L (3.5-5.1)
[2016-10-28 03:35] VITALS: BP 145/79
[2016-10-28 08:10] VITALS: BP 133/66
[2016-10-28 11:50] VITALS: BP 119/63
[2016-10-28 16:00] VITALS: BP 126/73
[2016-10-28 20:23] VITALS: BP 139/63
[2016-10-29 04:36] VITALS: BP 123/59
[2016-10-29] MEDS ORDERED: PACERONE 200 M200 M1 PO (07:51)
[2016-10-29 08:06] VITALS: BP 148/63
[2016-10-29 12:01] VITALS: BP 110/64
[2016-10-29 12:52] VITALS: BP 110/64
[2016-10-29 15:25] VITALS: BP 110/64
== END 2016-10-29 15:31 | disposition home or self-care (01) | DRG 234 ==
LOC: ER 12:34 → EROBS 13:44 → TBA 13:44 → 2N 13:44 → TBA 10-22 09:05 → ICU 10-22 15:45 → 2N 10-24 11:30
PROVIDERS: Family Medicine; Internal Medicine Cardiovascular Disease; Physician Assistant; Surgery Vascular Surgery
PROC: 4A023N7 Measurement of Cardiac Sampling and Pressure, Left Heart, Percutaneous Approach (ICD-10-PCS; principal; 2016-10-21)
PROC: B4101ZZ Fluoroscopy of Abdominal Aorta using Low Osmolar Contrast (ICD-10-PCS; principal; 2016-10-21)
PROC: B2111ZZ Fluoroscopy of Multiple Coronary Arteries using Low Osmolar Contrast (ICD-10-PCS; principal; 2016-10-21)
PROC: B2151ZZ Fluoroscopy of Left Heart using Low Osmolar Contrast (ICD-10-PCS; principal; 2016-10-21)
PROC: 06BQ4ZZ Excision of Left Saphenous Vein, Percutaneous Endoscopic Approach (ICD-10-PCS; 2016-10-22)
PROC: 021309W Bypass Coronary Artery, Four or More Arteries from Aorta with Autologous Venous Tissue, Open Approach (ICD-10-PCS; 2016-10-22)
PROC: 5A1221Z Performance of Cardiac Output, Continuous (ICD-10-PCS; 2016-10-22)
PROC: 02100Z9 Bypass Coronary Artery, One Artery from Left Internal Mammary, Open Approach (ICD-10-PCS; 2016-10-22)
DX: I25.10 Atherosclerotic heart disease of native coronary artery without angina pectoris (principal); D62 Acute posthemorrhagic anemia; K56.7 Ileus, unspecified; I10 Essential (primary) hypertension; E11.9 Type 2 diabetes mellitus without complications; E78.00 Pure hypercholesterolemia, unspecified; E78.5 Hyperlipidemia, unspecified; R14.0 Abdominal distension (gaseous); R06.6 Hiccough; M19.90 Unspecified osteoarthritis, unspecified site; K21.9 Gastro-esophageal reflux disease without esophagitis; E66.9 Obesity, unspecified; Z96.652 Presence of left artificial knee joint; Z96.612 Presence of left artificial shoulder joint; Z68.28 Body mass index [BMI] 28.0-28.9, adult; Z87.891 Personal history of nicotine dependence; Z79.84 Long term (current) use of oral hypoglycemic drugs; Z79.899 Other long term (current) drug therapy; Z86.19 Personal history of other infectious and parasitic diseases; Z88.8 Allergy status to other drugs, medicaments and biological substances; Z82.49 Family history of ischemic heart disease and other diseases of the circulatory system
CPT/HCPCS: 10078; 10081; 47000; 47001; 47002; 47297; 48888; 50010; 50249; 50409; 50456; 50498; 50668; 51301; 52131; 52259; 53327; 53358; 54118; 56524; 56525; 56526; 56527; 56528; 56531; 56534; 56660; 56898; 57093; 62110; 62950; 64029; 65002; 65003; 65020; 65043; 65090; 65120